=== PATIENT | female | born 1970 | race Two or more races ===

== ENCOUNTER 2022-11-01 15:43 | Inpatient (IN) | payer OTHER ==
[~2022-11-01] VITALS: Ht 167.6 cm; Wt 89.4 kg
[2022-11-02] MEDS ORDERED: MAXFE CAPLET1 EAC1 PO (13:10)
[2022-11-08] MEDS ORDERED: GABAPENTIN300 MG PO (07:17)
[2022-11-08] MEDS ORDERED: AUGMENTIN XR 11 EACH PO (07:19)
[2022-11-08] MEDS ORDERED: IBUPROFEN800 MG PO (07:19)
== END 2022-11-08 09:16 | disposition home or self-care (01) | DRG 743 ==
LOC: O/R 11-06 08:38 → OB/GYN 11-06 12:00
PROVIDERS: ADMIT Obstetrics & Gynecology Gynecology; ATTEND Obstetrics & Gynecology Gynecology
PROC: 0UT70ZZ Resection of Bilateral Fallopian Tubes, Open Approach (ICD-10-PCS; 2022-11-06)
PROC: 0UT90ZZ Resection of Uterus, Open Approach (ICD-10-PCS; principal; 2022-11-06 12:00)
DX: D25.1 Intramural leiomyoma of uterus (principal); D25.0 Submucous leiomyoma of uterus; N80.03 Adenomyosis of the uterus; Z20.822 Contact with and (suspected) exposure to COVID-19